=== PATIENT | female | born 1985 | race Caucasian/White ===

== ENCOUNTER → 2024-02-02 14:07 | Outpatient (REF) | payer OTHER, SELFPAY | LOC: RCS 14:07 | PROVIDERS: ATTENDING PHYSICIAN Internal Medicine Cardiovascular Disease; FAMILY PHYSICIAN Nurse Practitioner Family | DX: R00.2 Palpitations (principal); I47.10 Supraventricular tachycardia, unspecified; C43.9 Malignant melanoma of skin, unspecified; D86.9 Sarcoidosis, unspecified; E78.00 Pure hypercholesterolemia, unspecified | CPT/HCPCS: 93306 ==